=== PATIENT | male | born 1960 ===

== ENCOUNTER 2019-04-12 18:25 | Emergency (ER) | payer OTHER ==
[~2019-04-12] VITALS: Ht 188 cm; Wt 149.7 kg
[~2019-04-12 18:25] MED LIST: AMOX1TAB5 PO; COZAAR100 MG; COZAAR100 MG PO; PROTONIX40 MG
[2019-04-12] MEDS ORDERED: XANAX0.25 MG (18:54)
[2019-04-12] MEDS ORDERED: PROTONIX40 M1 (18:54)
== END 2019-04-12 22:04 | disposition home or self-care (01) ==
LOC: ER 18:25
DX: S80.11XA Contusion of right lower leg, initial encounter (principal); L03.115 Cellulitis of right lower limb; W21.03XA Struck by baseball, initial encounter; Y93.89 Activity, other specified; Y92.39 Other specified sports and athletic area as the place of occurrence of the external cause; Y99.8 Other external cause status

== ENCOUNTER 2020-03-05 00:34 | Emergency (ER) | payer OTHER ==
[~2020-03-05] VITALS: Ht 188 cm; Wt 147.4 kg
[~2020-03-05 00:34] MED LIST changes: +PROTONIX40 M1; +XANAX0.25 MG
== END 2020-03-05 02:16 | disposition home or self-care (01) ==
LOC: ER 00:34
DX: N39.0 Urinary tract infection, site not specified (principal); R30.0 Dysuria

== ENCOUNTER 2021-01-14 08:38 | Emergency (ER) | payer OTHER ==
[~2021-01-14] VITALS: Ht 188 cm; Wt 152.0 kg
== END 2021-01-14 11:12 | disposition home or self-care (01) ==
LOC: ER 08:38
DX: S83.8X2A Sprain of other specified parts of left knee, initial encounter (principal); X50.9XXA Other and unspecified overexertion or strenuous movements or postures, initial encounter; Y93.89 Activity, other specified; Y92.89 Other specified places as the place of occurrence of the external cause; Y99.8 Other external cause status

== ENCOUNTER → 2023-01-29 | Emergency (ER) | payer OTHER ==
[~2023-01-29] VITALS: Ht 188 cm; Wt 142.4 kg
== END | disposition home or self-care (01) ==
LOC: ER 13:18
DX: I10 Essential (primary) hypertension (principal); R42 Dizziness and giddiness; F41.9 Anxiety disorder, unspecified